=== PATIENT | male | born 1970 | race African-American/Black ===

== ENCOUNTER 2017-01-19 17:27 | Inpatient (IN) | payer OTHER ==
--- NOTE | ~2017-01-19 | HP ---
Unit #: [id number] #: [id number] Patient: KARAN DUNN [id number] [place] [address] [id number] MR#: [id number] NAME: KARAN DUNN ROOM: P131 Age: 46 Sex: M Admission Date: 01/19/2017 : 1970 Attending Physician: Randell Beck M.D. Admitting Physician: Randell Beck M.D. Primary Care Physician: Primary Care Physician No HISTORY AND PHYSICAL HISTORY OF PRESENT ILLNESS Karan is a 46 year old admitted to [address] [place] [address] because of his polysubstance abuse to include meth, crack and alcohol. PAST MEDICAL HISTORY 1. Long history of illicit substance abuse to include methamphetamine, crack cocaine and marijuana. 2. History of alcohol abuse. 3. Positive HIV. 4. High blood pressure. PAST SURGICAL HISTORY Nothing reported. ALLERGIES Aspirin, ibuprofen. SOCIAL HISTORY Smokes one pack per day. Admits to abusing alcohol and further admits to a history of illicit substance abuse to include methamphetamine and cocaine. FAMILY HISTORY Medically noncontributory. REVIEW OF SYSTEMS CONSTITUTIONAL: No fever or chills. HEENT: Denies any sore throat, ear pain or runny nose. CARDIOVASCULAR: Denies chest pain, irregular heart rhythm or palpitations. CHEST: Denies shortness of breath or cough. No hemoptysis. GASTROINTESTINAL: Denies nausea, vomiting, diarrhea or chronic constipation. ENDOCRINE: Denies history of increased thirst or urination. No recent significant weight loss or gain. GENITOURINARY: Denies dysuria, frequency, or hematuria. SKIN: Denies any rashes. HEMATOLOGIC: Denies history of increased bleeding or bruising. MUSCULOSKELETAL: Denies any hot, swollen joints. No generalized muscle pain. NEUROLOGIC: Denies problems with vision or speech. No frequent, severe headaches. No numbness, tingling or weakness in any extremities. Denies loss of bladder or bowel control. Unit #: [id number] #: [id number] Patient: KARAN DUNN CURRENT MEDICATIONS 1. Detox protocol 2. Norvasc 5 mg q day 3. Prezista 800 mg 4. Norvir 100 mg q day 5. Truvada 1 tab q day 6. Zestril 10 mg q day PHYSICAL EXAMINATION GENERAL: Alert, well-nourished, in no apparent distress. VITAL SIGNS: Blood pressure 148/84, heart rate 80, respirations 16, temperature 98.6. WEIGHT: 160 pounds. HEIGHT: 5'8". SKIN: Warm and dry without rash or lesion. HEENT: Normocephalic. TMs not viewed. Oral and nasal passages clear. Conjunctivae clear. Pupils equal, round and reactive to light and accommodation. Extraocular movements intact. NECK: Supple without lymphadenopathy or thyromegaly. HEART: Regular rate and rhythm without murmur. LUNGS: Clear. ABDOMEN: Soft, nontender. : Not done. EXTREMITIES: No evidence of cyanosis, clubbing or edema. Moves all extremities without focal deficit. NEUROLOGICAL: Grossly within normal limits. Cranial Nerves: II: Visual cote are intact. III, IV AND : Extraocular movements are intact. Pupils are equal, round and reactive to light. V: Facial sensation is grossly normal. VII: Facial movements and expression are normal. VIII: Auditory acuity grossly intact. IX, X: Uvula is midline. Phonation is normal. XI: Patient shrugs shoulders and turns head normally. XII: Tongue protrudes in the midline. Sensory and Motor Function: Sensory and motor sensation is grossly normal. Motor: moves all extremities well. Coordination: Gait is normal. Deep Tendon Reflexes: Intact. IMPRESSION Psychiatric admission RECOMMENDATIONS PSYCHIATRIC: Per psychiatrist. MEDICAL: I see no contraindications to participating in facility's activities. MEDICAL PROGNOSIS Good. MEDICAL CONDITION Stable. Dictated by... Unit #: [id number] #: [id number] Patient: KARAN DUNNKAYY Chino, P.A.-C. for Wero Zimmer/rupal TD: 01/20/2017 19:45 JOB #: [id number] HISTORY AND PHYSICAL Page 1 of 1 X Ann Marie Chino HISTORY AND PHYSICAL
--- NOTE | ~2017-01-19 | PN ---
Unit #: [id number] #: [id number] Patient: KARAN DUNN [id number] [facility] [address] [place] [address] [id number] I MR#: [id number] NAME: KARAN DUNN ROOM: P131 Age: 46 Sex: M Admission Date: 01/19/2017 : 1970 Attending Physician: Randell Beck M.D. Admitting Physician: Randell Beck M.D. Primary Care Physician: Primary Care Physician Jazlyn COOLEY PROGRESS NOTES DATE 01/21/2017 DISCUSSION The patient is active within the therapeutic milieu. He complains of extreme anger and disillusionment with [place] society during today's interview and continues to report abuse of crack cocaine and states that he is now abusing methamphetamine in addition. He is expressing interest in residential chemical dependence treatment and I will ask a social security specialist to see him regarding this. Dictated by... Randell Beck M.D. CB/michelle TD: 01/21/2017 16:12 JOB #: [id number] YASIR PROGRESS NOTES Page 1 of 1 X Randell Beck MD X PROGRESS NOTE
--- NOTE | ~2017-01-19 | PA ---
Unit #: [id number] #: [id number] Patient: KARAN DUNN [id number] [facility] [address] [place] [address] [id number] I MR#: [id number] NAME: KARAN DUNN ROOM: P131 Age: 46 Sex: M Admission Date: 01/19/2017 : 1970 Date of Assessment: 01/20/2017 Attending Physician: Randell Beck M.D. Admitting Physician: Randell Beck M.D. Primary Care Physician: Primary Care Physician No PSYCHIATRIC ASSESSMENT IDENTIFYING INFORMATION The patient is a 46-year-old male well-known to this physician. He is admitted with reported suicidal ideation. INFORMANT(S) Chart. Patient could not be aroused for interview. CHIEF COMPLAINT None given. HISTORY OF PRESENT ILLNESS The patient is a 46-year-old male last treated at this facility in March 2016. He has a history of being HIV positive as well as abuse of cocaine. The patient reported positive suicidal and homicidal ideation upon arriving at this facility yesterday. The patient has spent over 20 years in longterm related to a history of assault and attempted murder charges. When seen today, the patient is sleeping soundly and cannot be aroused for interview. He is currently on no psychotropic medications. For a more complete history of present illness, please refer to previous dictated notes. PAST PSYCHIATRIC HISTORY Reviewed, no changes. FAMILY HISTORY/SOCIAL HISTORY Reviewed, no changes. MEDICAL HISTORY Reviewed, no changes. MEDICATION HISTORY 1. Lisinopril. 2. Truvada. 3. Multivitamin. 4. Norvir. 5. Amlodipine. 6. Prezista. ALLERGIES None. MENTAL STATUS EXAM At this time, reveals the patient to be a soundly sleeping Unit #: [id number] #: [id number] Patient: KARAN DUNN [place] male. Multiple attempts to arouse him are unsuccessful. ASSETS AND LIABILITIES Patient's assets to be assessed. Liabilities, lack of resources, health issues. ADMITTING DIAGNOSES 1. Dysthymic disorder. 2. Cocaine use disorder. 3. Antisocial personality disorder. 4. Hypertension. 5. HIV positive. PSYCHIATRIC PLAN/TREATMENT GOALS The patient remains hospitalized for safety and stabilization. We will continue his antihypertensive and HIV medications and the patient will participate in appropriate paul and milieu activities. We may look to transfer the patient to one of our chemical dependence treatment units as his course dictates. ESTIMATED LENGTH OF STAY Three to five days. Dictated by... Randell Beck M.D. ANU/michelle TD: 01/20/2017 16:33 JOB #: [id number] PSYCHIATRIC ASSESSMENT Page 1 of 1 X Randell Beck MD X PSYCHIATRIC ASSESSMENT
--- NOTE | ~2017-01-19 | DS ---
Unit #: [id number] #: [id number] Patient: KARAN DUNN [id number] [facility] [address] [place] [address] [id number] I MR#: [id number] NAME: KARAN DUNN ROOM: 14 Age: 46 Sex: M Admission Date: 01/19/2017 : 1970 Discharge Date: 01/22/2017 Attending Physician: Randell Beck M.D. Primary Care Physician: Primary Care Physician No DISCHARGE SUMMARY REASON FOR ADMISSION The patient is a 46-year-old male with history of cocaine abuse and HIV positive, admitted with recurrent suicidal ideation and abuse of cocaine. HOSPITAL COURSE The patient was admitted to the [address] [place] [address] unit and continued on previously prescribed home medications. On 01/22/2017, this physician learned that the patient had been accepted for treatment at [facility] and discharge was ordered. FINAL DIAGNOSES Cocaine use disorder; mood disorder, unspecified; hypertension; human immunodeficiency virus positive. DISPOSITION ON DISCHARGE The patient is discharged on the following medications: Lisinopril 10 mg at bedtime daily for hypertension, Truvada one tablet daily for HIV, multivitamin one daily for nutritional supplementation, Norvir 100 mg daily for HIV, amlodipine 5 mg daily for hypertension, Prezista 800 mg daily for HIV. DISCHARGE INSTRUCTIONS No dietary or physical restrictions were placed upon the patient at the time of discharge. FOLLOWUP Followup will take place through the auspices of community mental health resources. PROGNOSIS The patient's prognosis is considered fair. Dictated by... Randell Beck M.D. CB/alfredito TD: 01/24/2017 13:58 JOB #: [id number] Unit #: [id number] #: [id number] Patient: KARAN DUNN DISCHARGE SUMMARY Page 1 of 1 X Randell Beck MD X DISCHARGE SUMMARY
[2017-01-20 09:53] LABS: BASOPHIL# 0.1 X10e3 (0-0.3); EOSINOPHIL# 0.2 X10e3 (0-0.7); EOSINOPHIL% 3.3 % (0.0-7.0); HEMATOCRIT 37.6 % (38.0-50.0); HEMOGLOBIN 12.3 gm/dL (13.0-16.0); LYMPHOCYTE# 2.1 X10e3 (1.0-3.5); LYMPHOCYTE% 35.2 % (17.0-45.0); MEAN CORPUSCULAR HGB CONC 32.7 g/dL (30-36); MEAN PLATELET VOLUME 8.3 FL (6.5-11.5); MONOCYTE# 0.4 X10e3 (0-1.0); NEUTROPHIL# 3.3 X10e3 (1.5-7.1); NEUTROPHIL% 53.5 % (40-75); PLATELET COUNT 203 X10e3 (140-420); RED BLOOD COUNT 4.22 X10e (3.90-5.60); RED CELL DISTRIBUTION WIDTH 14.9 % (11.0-15.5); WHITE BLOOD COUNT 6.1 X10e3 (4.0-10.5)
[2017-01-20 10:00] LABS: DIFF IND NO
[2017-01-20 10:06] LABS: ALBUMIN SERUM 3.3 g/dL (3.5-5.0); BILIRUBIN,TOTAL 0.3 mg/dL (0.2-2.0); BUN/CREATININE RATIO 16.36; CALCIUM SERUM 8.8 mg/dL (8.4-10.2); CREATININE SERUM 1.1 mg/dL (0.6-1.4); GLOM FILT RATE Estimated 93.5 mL/min (>60); POTASSIUM 3.9 mmol/L (3.5-5.1); PROTEIN TOTAL SERUM 5.8 g/dL (6.0-8.3)
== END 2017-01-22 12:27 | disposition other institution (70) | DRG 881 ==
LOC: P1S 20:19
PROVIDERS: Specialist
DX: F34.1 Dysthymic disorder (principal); R45.851 Suicidal ideations; I10 Essential (primary) hypertension; F14.10 Cocaine abuse, uncomplicated; F60.2 Antisocial personality disorder; Z21 Asymptomatic human immunodeficiency virus [HIV] infection status; F17.210 Nicotine dependence, cigarettes, uncomplicated; Z88.6 Allergy status to analgesic agent
CPT/HCPCS: 80053; 85025